=== PATIENT | female | born 1980 | race Caucasian/White ===

== ENCOUNTER 2016-10-17 09:24 | Day surgery (SDC) | payer OTHER ==
[~2016-10-17 09:24] MED LIST: Buffered Lidocaine 0.9% SYRIN* 5 ML/SYR SYRINGE INTRADERM ONE; Famotidine IV* 10 MG/ML 2 ML (20 mg) IV ONE; Morphine INJ* 2 MG/ML 1 ML SYRINGE IV PRN; PROCHLORPERAZINE INJ 5 MG/ML 2 ML VIAL IV PRN; fentaNYL* 50 MCG/ML 2 ML VIAL (100 MCG VIAL) IV PRN; oxyCODONE/Acetamin 5/325 MG* TAB PO PRN
[2016-10-17] MEDS ORDERED: Famotidine IV* 10 MG/ML 2 ML (20 mg) ONE (09:25)
[2016-10-17] MEDS ORDERED: Buffered Lidocaine 0.9% SYRIN* 5 ML/SYR SYRINGE ONE (09:25)
[2016-10-17] MEDS ORDERED: fentaNYL* 50 MCG/ML 2 ML VIAL (100 MCG VIAL) ONE (09:37)
[2016-10-17] MEDS ORDERED: Midazolam* 1 MG/ML 5 ML VIAL (5 MG) ONE (09:38)
[2016-10-17] MEDS ORDERED: KETAMINE HCL* 50 MG/ML 10 ML VIAL ONE (09:38)
[2016-10-17] MEDS ORDERED: Bupivacaine 0.5% W/EPI SDV* 10 ML VIAL INJ ONE (10:19)
[2016-10-17] MEDS ORDERED: Lidocaine 1% INJ* 10 MG/ML 30 ML SDV ONE (10:19)
[2016-10-17] MEDS ORDERED: Propofol* 10 MG/ML 20 ML BTL IV PUSH ONE (10:47)
[2016-10-17] MEDS ORDERED: Lidocaine 2% PF * 5 ML VIAL ONE (10:47)
[2016-10-17] MEDS ORDERED: Dexamethasone IV* 4 MG/ML 1 ML (4 MG) ONE (10:47)
[2016-10-17] MEDS ORDERED: Ondansetron INJ* 2 MG/ML VIAL ONE (10:47)
[2016-10-17] MEDS ORDERED: PROCHLORPERAZINE INJ 5 MG/ML 2 ML VIAL ONE (11:20)
[2016-10-17] MEDS ORDERED: Scopolamine 1.5 mg* PATCH ONE (11:42)
[2016-10-17 11:59] VITALS: BP 104/68
--- NOTE | 2016-10-18 10:29 | OP ---
CC: Racheal Barnett NP * DATE OF OPERATION: 10/17/16 - [facility] DATE OF : 78 SURGEON: Erin Matthews MD SATURATION DIVER: There was no therapeutic recreation assistant for this case. ANESTHESIOLOGIST: Sterling Orona MD ANESTHESIA: General PRE-OP DIAGNOSIS: Left axillary mass. POST-OP DIAGNOSIS: Left axillary mass. OPERATIVE PROCEDURE: Excision of left axillary mass. INDICATIONS: This patient is a 36-year-old woman who presented to the office with a mass in the left axilla. Given her strong family history of breast cancer, ultrasound evaluation was done and showed an indeterminant nodule prompting the plan for a surgical excision. DESCRIPTION OF PROCEDURE: She was brought to the operating room, placed on the OR table in supine position and given general anesthesia. The left axilla was prepped and draped in the usual sterile fashion, and then after infiltrating with local anesthetic, an elliptical incision encompassing the dome of the mass was made. Subcutaneous tissue was then divided with a combination of sharp and electrocautery dissection to completely excise a nodule that was easily palpable under the skin. This was handed off as a specimen. Hemostasis was assured with electrocautery and once this was adequate, closure was accomplished with 3-0 Polysorb in a subcutaneous layer, and the skin was closed with 4-0 Surgipro in a subcuticular fashion. Steri-Strips and a dry sterile dressing were applied. All sponge and instrument counts were correct. The patient tolerated the procedure well and was transferred to Recovery in a stable condition. [id number]/[facility] #: [id number] MTDD
== END 2016-10-17 12:30 | disposition home or self-care (01) ==
LOC: OR 09:24
PROVIDERS: ATTEND Surgery
DX: L02.412 Cutaneous abscess of left axilla (principal); F17.210 Nicotine dependence, cigarettes, uncomplicated; J45.909 Unspecified asthma, uncomplicated; Z80.3 Family history of malignant neoplasm of breast
CPT/HCPCS: 88305; A9270-GY; J0780; J1100; J2001; J2250; J2405; J2704; J3010

== ENCOUNTER 2016-10-25 22:58 | Observation (INO) | payer OTHER ==
[2016-10-26] MEDS ORDERED: Vancomycin(*) 1,000 MG in NS 0.9% 250 ML* 250 ML IVPB ONE (02:00)
[2016-10-26 02:49] LABS: Hematocrit 40 % (35-47); Hemoglobin 13.1 g/dl (12.0-16.0); Mean Corpuscular HGB Conc 33 g/dl (31-36); Mean Corpuscular Hemoglobin 30 pg (27-31); Mean Corpuscular Volume 93 fL (80-97); Mean Platelet Volume 9 um3 (7.4-10.4); Red Blood Count 4.29 10^6/ul (4.0-5.4); Red Cell Distribution Width 13 % (10.5-15); White Blood Count 9.6 10^3/ul (3.5-10.8)
[2016-10-26 02:59] LABS: Albumin 3.7 g/dL (3.2-5.2); BUN/Creatinine Ratio 23.8 (8-20); Calcium 8.7 mg/dL (8.6-10.3); EGFR African American 103.8 (>60); EGFR Non-African American 80.7 (>60); Globulin 2.8 g/dL (2-4); Total Bilirubin 0.2 mg/dL (0.2-1.0); Total Protein 6.5 g/dL (6.4-8.9)
[2016-10-26] MEDS: HYDROmorphone* 1 MG/ML 1 ML SYR IV SLOW PU PRN ×5 (03:19→17:59)
[2016-10-26] MEDS: Ondansetron INJ* 2 MG/ML VIAL IV PRN ×3 (03:19→17:59)
[2016-10-26] MEDS: Sulfamethox/Trimethoprim DS 800/160* TAB PO SCH ×2 (09:26→21:05)
[2016-10-26] MEDS: metroNIDAZOLE TAB* 250 MG PO SCH ×3 (09:26→21:05)
[2016-10-26] MEDS: Divalproex DR TAB(*) 500 MG PO SCH (09:26)
[2016-10-26] MEDS: Mometasone/Formoter 200/5 MDI INH SCH (09:27)
[2016-10-26] MEDS: Ketorolac INJ* 30 MG/ML 1 ML VIAL IV PUSH SCH ×3 (10:41→22:12)
[2016-10-26] MEDS: Albuterol 2.5 MG/3 ML NEB.SOL* (0.083%) INH SCH ×2 (15:56→17:58)
--- NOTE | 2016-10-26 16:26 | HP ---
CC: Sterling Pena MD; Racheal Barnett NP HISTORY AND PHYSICAL: DATE OF ADMISSION: This is an interval re-admission note. HISTORY OF PRESENT ILLNESS: The patient is a 36-year-old female who underwent excision of an axilla ry abscess by Dr. Matthews on 10/17/16. She was seen 5 days ago by her primary physician, who saw [facility] [place] and put her on Bactrim. She presented back to the emergency room in [place] last night and subsequently was transferred here to [facility] with increasing pain and drainage fr om the site. The pain has required intravenous Dilaudid to try to get it under control. PAST MEDICAL HISTORY: The remainder of her past medical history is unchanged from previous. PHYSICAL EXAMINATION On examination today, she has some mild erythema and swelling around the left axillary incision site . The wound has opened up. It is approximately 2 x 2.5 cm with a depth of about 3 cm. It is drain ing clear serous fluid. There is some purulent exudate there as well. There is some tenderness ext ending down into her arm, but I do not appreciate any erythema or induration down into the arm. The hand appears well perfused and without edema. LABORATORY STUDIES: Reveal normal white blood count with just a trace left shift. Electrolytes are normal. She had a swab of the area taken in the emergency room. The Gram stain shows gram- positive cocci a nd gram-positive bacilli. IMPRESSION: A 36-year-old female, 9 days out from excision of abscessed mass at the left axilla, no w with increased pain and drainage and inflammation in the area. She was admitted for pain control a nd continued antibiotics. Hopefully, once we get her pain under control, she will be able to go katy e relatively quickly. [id number]/[facility] #: [id number]
[2016-10-26] MEDS ORDERED: Sertraline* 50 MG TAB PO SCH (21:00)
[2016-10-26] MEDS ORDERED: Divalproex DR TAB(*) 500 MG PO SCH (21:00)
[2016-10-26] MEDS: oxyCODONE/Acetamin 5/325 MG* TAB PO PRN (21:04)
[2016-10-27] MEDS: Mometasone/Formoter 200/5 MDI INH SCH ×2 (00:28→08:15)
[2016-10-27] MEDS: Albuterol 2.5 MG/3 ML NEB.SOL* (0.083%) INH SCH ×2 (01:44→06:14)
[2016-10-27] MEDS: Ketorolac INJ* 30 MG/ML 1 ML VIAL IV PUSH SCH ×2 (04:22→09:22)
[2016-10-27] MEDS: oxyCODONE/Acetamin 5/325 MG* TAB PO PRN (06:46)
[2016-10-27] MEDS: metroNIDAZOLE TAB* 250 MG PO SCH (09:22)
[2016-10-27] MEDS: Sulfamethox/Trimethoprim DS 800/160* TAB PO SCH (09:22)
[2016-10-27] MEDS: Divalproex DR TAB(*) 500 MG PO SCH (09:22)
--- NOTE | 2016-10-27 11:13 | PN ---
Progress Note - Progress Note Date of Service: 10/27/16 SOAP: Subjective: Doing much better. Pain has improved. Minimal drainage, changed dressing once. Denies fever or chills. Objective: Awake and alert, appears comfortable and in NAD Left axilla with a small approx 2x2 wound packed with dry dressing. No induration or erythema noted. No bleeding or discharge. A strip of 1/4 plain packing gauze used to pack wound, then covered with 4x4 dressing and ABD. Assessment: A 36 y/o female, s/p I&D of L axillary cyst Plan: D/C to home today PO Augmentin and Percocet prn. F/U in office in [address] Matthews for packing change and wound recheck. Pt already has an appointment scheduled.
[2016-10-27 13:02] VITALS: BP 125/55
--- NOTE | 2016-10-28 11:19 | DS ---
AMENDED REPORT NOW INCLUDES COSIGNER DESIGNATION - ESIGNED BEFORE ADJUSTMENTS CC: Dr. Matthews; Racheal Barnett NP * DISCHARGE SUMMARY: DATE OF ADMISSION: 10/26/16 DATE OF DISCHARGE: 10/27/16 PATIENT OF: Dr. Sterling Pena. * (DICTATED BY BROOKS CALLAHAN) REASON FOR ADMISSION: Left axillary pain and drainage, status post excision of a sebaceous cyst from the left axilla 9 days ago. ADMITTING PHYSICIAN: Sterling Pena MD CONSULTATIONS: None. PROCEDURES: None. BRIEF MEDICAL HISTORY: Ms. Elizondo is a pleasant 36-year-old female who underwent an excision of an axillary cyst by Dr. Matthews back on 10/17/16. She was seen 5 days ago by her primary physician, who saw some possible infection in the area. The patient was started on Bactrim and she presented back to the emergency room yesterday in [place] with increasing pain and drainage from the site. She was eventually transferred to [facility] Emergency Room where she was evaluated by Dr. Pena and a decision was made for her to be admitted for pain control and IV antibiotics. HOSPITAL COURSE: The patient was directly admitted by surgical services. On examination, she happened to have some mild erythema and swelling for which the wound was opened and it measured approximately 2 x 2.5 cm with a depth of about 3 cm. It was noted that it had a clear serous drainage as well as some purulent exudate as well. There was no evidence of any erythema or induration; however, the patient was kept overnight for observation. This morning she did relatively much better with better pain control. She was stopped from her Bactrim and initial cultures of her axillary wound revealed gram-positive cocci in cluster for which we will change antibiotic coverage to Augmentin pending on the culture results. She was doing much better this morning and she was ready to be discharged home. The area was examined again and there was no evidence of any erythema, induration, bleeding or discharge. The wound was packed with a quarter-inch plain packing gauze and covered with 4 x 4 sterile dressing and ABD pads. The patient already has a followup appointment with Dr. Matthews in 2 days in the office where she will be seen for wound recheck and possible packing change. DISCHARGE MEDICATIONS: Include: 1. Albuterol nebulizer 2.5 mg per 3 mL q.6 hours as needed for shortness of breath. 2. Tylenol 650 p.o. q.6 hours as needed for pain or fever. 3. Augmentin 875 mg p.o. b.i.d. for 7 days. 4. Depakote 500 mg two tablets daily. 5. Imitrex 100 mg p.o. daily. 6. Zoloft 50 mg p.o. q.h.s. 7. Percocet 5/325 one to two tablets q.6 hours as needed for pain. PROBLEM LIST: Left axillary sebaceous cyst, status post excision of the cyst 10 days ago with complicated abscess and seroma formation, status post suture removal and packing of left axillary wound. [facility] [place] [id number]/[facility] #: [id number] MTDD
== END 2016-10-27 13:25 | disposition home or self-care (01) ==
LOC: ED 22:58 → SSU 10-26 01:34
PROVIDERS: ADMIT Surgery; ATTEND Surgery
DX: L02.412 Cutaneous abscess of left axilla (principal); G89.18 Other acute postprocedural pain; Z79.899 Other long term (current) drug therapy
CPT/HCPCS: 36415; 80053; 83605; 85025; 85610; 85730; 87040; 87070; 87076; 87205; 94640; 96374; 96375; 96376; A9270-GY; G0378; J1170; J1885; J2405; J3370

== ENCOUNTER 2019-02-19 14:34 | Emergency (ER) | payer OTHER ==
[2019-02-19 14:57] VITALS: BP 123/78
--- NOTE | 2019-02-19 15:27 | UC ---
Throat Pain/Nasal Bret HPI - HPI Summary HPI Summary: 38-year-old woman comes in with a chief complaint of 4 days of upper respiratory tract infection symptoms.'s been having rhinorrhea down into her chest is cough chest congestion also. Sputum is green. Also has been vomiting intermittently. Does have some soreness left upper quadrant of her abdomen is worse with coughing or vomiting. No other abdominal pain. No recent fevers. - History of Current Complaint Chief Complaint: UCGeneralIllness Stated Complaint: SORE THROAT HEADACHE SINUS NAUSEA Time Seen by Provider: 02/19/19 15:06 Hx Last Menstrual Period: 09/12/13 Pain Intensity: 5 - Allergies/Home Medications Allergies/Adverse Reactions: Allergies Allergy/AdvReac Type Severity Reaction Status Date / Time levofloxacin [From Levaquin] Allergy Swelling Verified 02/19/19 14:58 piroxicam [From Feldene] Allergy Hives Verified 02/19/19 14:58 bees Allergy Swelling Uncoded 02/19/19 14:58 Of Face,Lips,& Throat berries Allergy Anaphylatic Uncoded 02/19/19 14:58 Shock Home Medications: Home Medications Phenylephrine HCl/Acetaminophn [Sinus-Headache Caplet] 1 each PO DAILY PRN 02/19 [History Confirmed 02/19/19] PMH/Surg Hx/FS Hx/Imm Hx Previously Healthy: Yes - Surgical History Surgical History: Yes Surgery Procedure, Year, and Place: appy 1995, cholecystectomy 2012, coloposcopy and tubal ligation 2004, b/l axilla cysts [id number] - Family History Known Family History: Positive: Other - Cancer - Social History Alcohol Use: Rare Substance Use Type: Marijuana Substance Use Comment - Amount & Last Used: once a day Smoking Status (MU): Light Every Day Tobacco Smoker Amount Used/How Often: 2-5 DAY - Immunization History Most Recent Influenza Vaccination: 2016 Most Recent Pneumonia Vaccination: 2016 Review of Systems All Other Systems Reviewed And Are Negative: Yes Constitutional: Positive: Other - SEE HPI Skin: Positive: Negative Eyes: Positive: Negative ENT: Positive: Sore Throat, Nasal Discharge, Sinus Congestion Respiratory: Positive: Cough, Other - SEE HPI Cardiovascular: Positive: Negative Gastrointestinal: Positive: Vomiting, Nausea, Other - SEE HPI Motor: Positive: Negative Neurovascular: Positive: Negative Musculoskeletal: Positive: Negative Neurological: Positive: Negative Psychological: Positive: Negative Is Patient Immunocompromised?: No Physical Exam Triage Information Reviewed: Yes Appearance: No Pain Distress, Well-Nourished, Ill-Appearing - MILD Vital Signs: Initial Vital Signs Temp 98.3 F 02/19/19 14:51 Pulse 70 02/19/19 14:51 Resp 18 02/19/19 14:51 BP 123/78 02/19/19 14:51 Pulse Ox 100 02/19/19 14:51 Vital Signs Reviewed: Yes Eye Exam: Normal Eyes: Positive: Conjunctiva Clear ENT: Positive: Pharyngeal erythema, Nasal congestion, Nasal drainage, TMs normal Neck: Positive: Supple Respiratory: Positive: Lungs clear, Normal breath sounds, No respiratory distress Cardiovascular: Positive: RRR Musculoskeletal: Positive: Strength Intact, ROM Intact Neurological: Positive: Alert, Muscle Tone Normal Psychological: Positive: Age Appropriate Behavior Skin Exam: Normal Throat Pain/Nasal Course/Dx - Course Course Of Treatment: DISCUSSED VIRAL VERSES BACTERIAL INFECTIONS AND THE ROLE OF ANTIBIOTICS. THE PATIENT PREFERS TO BE ON ANTIBIOTICS AT THIS TIME. - Differential Dx/Diagnosis Provider Diagnosis: Bronchitis, Vomiting Discharge ED - Sign-Out/Discharge Documenting (check all that apply): Patient Departure All imaging exams completed and their final reports reviewed: No Studies - Discharge Plan Condition: Stable Disposition: HOME Prescriptions: Azithromyxin ADALBERTO (NF) [Z-Adalberto (Zithromax) 250 mg tabs #6] 2 tab PO .TODAY, THEN 1 DAILY #6 tab Ondansetron ODT TAB* [Zofran 4 MG Odt TAB*] 4 mg PO Q6H PRN #10 tab.odt PRN Reason: Nausea Patient Education Materials: Acute Bronchitis (ED), Acute Nausea and Vomiting ( ED) Referrals: Racheal Barnett NP [Primary Care Provider] - Additional Instructions: FOLLOW UP WITH YOUR DOCTOR IF NOT COMPLETELY IMPROVED. GET REEVALUATED SOONER IF NOT IMPROVING OR WORSE OR ANY QUESTIONS OR CONCERNS. - Billing Disposition and Condition Condition: STABLE Disposition: Home
== END 2019-02-19 15:32 | disposition home or self-care (01) ==
LOC: UCCORT 14:34
DX: J40 Bronchitis, not specified as acute or chronic (principal); R11.2 Nausea with vomiting, unspecified; J02.9 Acute pharyngitis, unspecified; F17.200 Nicotine dependence, unspecified, uncomplicated; Z88.1 Allergy status to other antibiotic agents; Z88.6 Allergy status to analgesic agent; Z91.030 Bee allergy status; Z91.018 Allergy to other foods
CPT/HCPCS: 87651; 99212; G0463

== ENCOUNTER 2019-05-19 19:25 | Emergency (ER) | payer OTHER ==
--- OUTSIDE RECORDS SUMMARY | 2019-05-19 19:49 | XMS REPORT | Continuity of Care Document ---
:1980 External Reference #:[id number] Demographics Phone Unavailable Preferred Language Unknown Marital Status Unknown Samaritan Affiliation Unknown Race Unknown Ethnic Group Unknown Author Name Nik Sheridan PA Address [address] [place] [address] Problems Description No Information Available Social History Type Date Description Comments Sex Unknown Allergies, Adverse Reactions, Alerts Active Allergies Reaction Severity Comments Date Bee Stings 04/18/2019 Medications Description No Active Medications Immunizations Description No Information Available Vital Signs Date Vital Result Comment 04/18/2019 1:36pm Weight 249.00 lb Heart Rate 87 /min BP Systolic 139 mmHg BP Diastolic 87 mmHg Height 65 inches 5'5" BMI (Body Mass Index) 41.4 kg/m2 Left ear audiology results 8FT Right ear audiology results 8FT Passed Right Visual Acuity Distance 20/25 Left Visual Acuity Distance 20/30 Both 20/30 Results Description No Information Available Procedures Description No Information Available Medical Devices Description No Information Available Encounters Description No Information Available Assessments Date Code Description Provider 04/18/2019 Z02.1 Encounter for pre-employment examination Nik Sheridan PA 04/18/2019 E66.01 Morbid (severe) obesity due to excess calories Nik Sheridan PA 04/18/2019 Z68.41 Body mass index (BMI) 40.0-44.9, adult Nik Sheridan PA Plan of Treatment 04/18/2019 - Nik Sheridan PAZ02.1 Encounter for pre-employment examinationComments: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
--- OUTSIDE RECORDS SUMMARY | 2019-05-19 19:49 | XMS REPORT | Continuity of Care Document ---
:1980 External Reference #:[id number] Author Name Racheal Barnett N.P. Address [address] [place] [address] Care Team Providers Name Role Phone Suraj Saavedra - Neurology Care Team Information Windshield Technician [phone] Problems Active Problems Provider Date Asthma Racheal Barnett N.PAmber Onset: 09/19/2014 Dysplasia of cervix Racheal Barnett N.PAmber Onset: 09/19/2014 Cholecystectomy Racheal Barnett, N.PAmber Onset: 09/19/2014 Appendectomy Racheal Barnett, N.PAmber Onset: 09/19/2014 H/O: tubal ligation Racheal Barnett, N.PAmber Onset: 03/17/2017 Diverticulitis Racheal Barnett, N.PAmber Onset: 11/09/2017 Social History Type Date Description Comments Sex Unknown Tobacco Use Start: Unknown current cigarette smoker Tobacco Use Start: Unknown Patient is a current smoker, smokes every day Allergies, Adverse Reactions, Alerts Active Allergies Reaction Severity Comments Date Feldene 09/19/2014 Levaquin 09/19/2014 Medications Active Medications SIG Qnty Indications Ordering Provider Date Zithromax Z-Anup as directed 1tabs Racheal Barnett, 05/25/2018 250mg N.P. Tablets Work Note no work Racheal Barnett, 05/25/2018 05/09/2019-05/13/19 N.P. 20 Proair HFA 2 puffs four 1units Racheal Barnett, 09/19/2014 108(90Base) times a day as N.P. mcg/Act Aerosol needed Symbicort inhale 2 puffs by 1unRacheal Leal, 09/19/2014 mouth 2 times a N.P. 160-4.5mcg/Act day Aerosol Medications Administered in Office Medication SIG Qnty Indications Ordering Provider Date Torodol Injection 15 MG Dose Racheal Barnett, N.P. 09/12/2015 Injection Immunizations CPT Code Status Date Vaccine Lot # [id number] Refused 05/25/2018 Influenza Vac, Quadrivalent, Split, 0.5mL Dosage, Im Use Vital Signs Date Vital Result Comment 05/11/2019 10:53am Body Temperature 97.7 F Weight 247.00 lb Heart Rate 82 /min BP Systolic 132 mmHg BP Diastolic 82 mmHg O2 % BldC Oximetry 97 % 05/25/2018 11:21am Body Temperature 98.6 F Weight 247.00 lb Heart Rate 83 /min BP Systolic 126 mmHg BP Diastolic 80 mmHg O2 % BldC Oximetry 97 % Results Test Acquired Date Facility Test Result H/L Range Note CBS 02/25/2019 [facility] White Blood 11.9 K/uL High 3.1-10.7 1 W/Automated (315)- - Count Diff Red Blood Count 5.21 M/uL Normal 3.90-5.40 Hemoglobin 15.5 gm/dL Normal 11.6-15.8 Hematocrit 45.9 % Normal 36.0-46.1 Mean Cell Volume 88.1 fl Normal 80.9-99.0 Mean Corpuscular HGB 29.8 pg Normal 25.9-32.7 Mean Corpuscular HGB Conc 33.8 g/dL Normal 30.8-34.3 Platelet Count 277 K/uL Normal 155-360 Red Cell Distri Width SD 42.4 fl Normal 36-47 Red Cell Distri Width %CV 13.1 % Normal 11.7-14.4 Mean Platelet Volume 10.0 fl Normal 8.9-12.4 Neut% 73.2 % High 40.4-72.8 Lymph % 20.0 % Normal 20.0-42.0 [place] % 4.6 % Normal 4.3-13.2 Eo% 1.3 % Normal 0.0-6.6 Bas% 0.3 % Normal 0.0-1.1 Immature Grans 0.6 % Normal 0.0-5.0 NRBC % 0.0 /100WBC < 10/ 100 WBC Neut# 8.68 K/uL High 1.8-7.0 Lymph # 2.37 K/uL Normal 1.0-4.0 [place] # 0.54 K/uL Normal 0.3-0.9 Eos # 0.15 K/uL Normal 0.0-0.5 Baso # 0.04 K/uL Normal 0.0-0.1 Immature Grans Absolute 0.07 K/uL NRBC # 0.00 K/uL Urinalysis With 02/25/2019 [facility] Urine Color Yellow Yellow Microscopic (315)- - Urine Clarity Clear Clear Urine Glucose - Dipstick NEGATIVE mg/dL Negative Urine Bilirubin - Dipstick NEGATIVE Negative Urine Ketone TRACE mg/dL Negative Urine Specific [place] 1.023 Normal 1.010-1.030 Urine Blood TRACE Negative Urine PH 5.5 Low 6.5-7.5 Urine Protein - Dipstick NEGATIVE mg/dL Negative Urine Urobilinogen - Dipstick < 2.0 mg/dL < 2.0 Urine Nitrite - Dipstick NEGATIVE Negative Urine Leuk Esterase NEGATIVE Negative Urine RBC 3-5 rbc/hpf 0-2 Urine WBC 0-2 wbc/hpf 0-5 Urine Epithelial Cells MANY /lpf None Seen Urine Bacteria FEW None Seen Urine Mucus SMALL None Seen Source: URINE, CLEAN CAT <SEE NOTE> 2 Laboratory test 02/19/2019 [facility] Rapid Strep Negative Negative 3 finding Molecular 1 DIARRHEA PAIN IN BACK BRONCHITIS LAST WEEK 2 URINE, CLEAN CATCH 3 [employer]: [id number] Suboptimal collection technique may reduce sensitivity of test. Refer to the [facility] Test Catalog for collection information: [email or web address] As with all diagnostic procedures, the laboratory results obtained should be used in conjunction with other clinical information available to the physician, including confirmation by another method, as applicable. Procedures Date Code Description Status 05/11/2019 13378 Measure Blood Oxygen Level Single Determination Completed 10/16/2016 [id number] Mammogram Completed 10/14/2016 [id number] Mammogram Completed Medical Devices Description No Information Available Encounters Description No Information Available Assessments Date Code Description Provider 05/11/2019 J20.9 Acute bronchitis, unspecified Racheal Barnett, N.P. Plan of Treatment 05/11/2019 - Racheal Barnett N.P.J20.9 Acute bronchitis, unspecifiedComments: cont current meds as rx'd, increase fluids and reststart zithromax as rx' dreport non-resolution 3-5days Functional Status Description No Information Available Mental Status Description No Information Available Referrals Description No Information Available
--- OUTSIDE RECORDS SUMMARY | 2019-05-19 19:49 | XMS REPORT | Continuity of Care Document ---
:1980 External Reference #:[id number] Author Name Zaid Betancourt M.D. (transmitted by agent of provider Gabriela Lundberg) Address [address] [place] [id number] Care Team Providers Name Role Phone Racheal Barnett NP - Family Care Team Information Registered Pharmacy Technician [phone] Problems Active Problems Provider Date Diverticulitis of colon Zaid Betancourt M.D. Onset: 11/23/2017 Social History Type Date Description Comments Sex Unknown ETOH Use Rarely consumes alcohol Tobacco Use Start: Unknown Light tobacco smoker (10 or fewer cigarettes/day) Recreational Drug Use Marijuana Allergies, Adverse Reactions, Alerts Active Allergies Reaction Severity Comments Date Feldene 12/25/2015 Piroxicam Hives 11/24/2017 Levaquin 12/25/2015 Levofloxacin Hives 11/24/2017 Medications Active Medications SIG Qnty Indications Ordering Provider Date Metronidazole 1 by mouth 30tabs K57.92 [place], 11/23/2017 500mg three times a Zaid Ramachandran, Tablets day M.D. Amoxicillin/Clavulanat 1 by mouth 20tabs K57.92 [place], 11/23/2017 e Potassium twice a day Zaid Ramachandran, 875-125mg M.D. Tablets Divalproex Sodium ER Halima Saldana, DEVOPS ARCHITECT-C 500mg Tablets ER 24HR Sertraline HCL Racheal Barnett, 50mg TRAVEL AGENCY MANAGER Tablets Metronidazole Take One 30tabs [place], 500mg Tablet By MD Zaid Tablets Mouth Three Times A Day Immunizations Description No Information Available Vital Signs Date Vital Result Comment 11/23/2017 2:47pm BP Systolic Sitting Right Arm 141 mmHg BP Diastolic Sitting Right Arm 65 mmHg Heart Rate 153 /min Respiratory Rate 18 /min Height 66 inches 5'6" Weight 251.38 lb BMI (Body Mass Index) 40.6 kg/m2 BSA (Body Surface Area) 2.20 m2 [place] body weight in kilograms 59 kg O2 % BldC Oximetry 97 % 02/14/2016 2:46pm BP Systolic Sitting Left Arm 122 mmHg BP Diastolic Sitting Left Arm 78 mmHg Heart Rate 83 /min Respiratory Rate 16 /min Height 66 inches 5'6" Weight 228.00 lb BMI (Body Mass Index) 36.8 kg/m2 BSA (Body Surface Area) 2.11 m2 Results Description No Information Available Procedures Date Code Description Status 01/23/2016 [id number] Colonoscopy Completed 03/30/2012 [id number] Colonoscopy Completed 03/30/2009 [id number] Colonoscopy Completed Medical Devices Description No Information Available Encounters Description No Information Available Assessments Description No Information Available Plan of Treatment 11/23/2017 - Zaid Betancourt M.D.K57.92 Diverticulitis of intestine, part unspecified, without perforation or abscess without bleedingNew Medication: Metronidazole 500 mg - 1 by mouth three times a dayAmoxicillin/Clavulanate Potassium 875-125 mg - 1 by mouth twice a dayComments:Resume abx. 40 electronically fall. Study with white cell,, hemoglobin, creatinine in preparation for CT scanning. Assess the systemic response to what appears to clinically be some ongoing smoldering infection.Certainly not out of question that additional intervention may be necessary to possibly include a more urgent review of the decision to continue with medical management proceed with surgery. This may mean creation of the stoma. She is aware of this.Follow-up next week; asked to call or return if there are difficulties before then. Seen with her . Questions addressed. Functional Status Description No Information Available Mental Status Description No Information Available Referrals Description No Information Available
[2019-05-19 19:54] VITALS: BP 128/75
--- NOTE | 2019-05-19 20:32 | UC ---
Ear Complaint HPI - HPI Summary HPI Summary: just finished zpack for cough On thursday, this morning pain in right neck/ear area, increase pain with pressure. Per patient swollen. - History of Current Complaint Chief Complaint: UCGeneralIllness Stated Complaint: THROAT COMPLAINT Time Seen by Provider: 05/19/19 20:30 Hx Obtained From: Patient Hx Last Menstrual Period: 05/09/19 ?: No Onset/Duration: Sudden Onset, Lasting Days Severity Initially: Moderate Severity Currently: Severe Pain Intensity: 8 Associated Signs/Symptoms: Positive: URI Symptoms - Allergies/Home Medications Allergies/Adverse Reactions: Allergies Allergy/AdvReac Type Severity Reaction Status Date / Time levofloxacin [From Levaquin] Allergy Swelling Verified 05/19/19 19:54 piroxicam [From Feldene] Allergy Hives Verified 05/19/19 19:54 bees Allergy Swelling Uncoded 05/19/19 19:54 Of Face,Lips,& Throat berries Allergy Anaphylatic Uncoded 05/19/19 19:54 Shock Home Medications: Home Medications Albuterol 2.5MG/3ML (0.083%)* 1 - 2 puff INH Q6HR 10/11/13 [History Confirmed ] predniSONE [Prednisone 20 MG TAB] 40 mg PO DAILY #10 tablet 05/19/19 [Rx] PMH/Surg Hx/FS Hx/Imm Hx Previously Healthy: Yes - Surgical History Surgical History: Yes Surgery Procedure, Year, and Place: appy 1995, cholecystectomy 2012, coloposcopy and tubal ligation 2004, b/l axilla cysts [id number]. axilia cyst removed 2016 - Family History Known Family History: Positive: Other - Cancer - Social History Occupation: Employed Full-time Alcohol Use: Rare Substance Use Type: Marijuana Substance Use Comment - Amount & Last Used: once a day Smoking Status (MU): Light Every Day Tobacco Smoker Amount Used/How Often: 2-5 DAY - Immunization History Most Recent Influenza Vaccination: 2016 Most Recent Pneumonia Vaccination: 2016 Review of Systems All Other Systems Reviewed And Are Negative: Yes ENT: Positive: Ear Ache Is Patient Immunocompromised?: No Physical Exam Triage Information Reviewed: Yes Appearance: Well-Nourished, Ill-Appearing, Pain Distress Vital Signs: Initial Vital Signs Temp 98.1 F 05/19/19 19:47 Pulse 83 02/20/20 19:47 Resp 20 05/19/19 19:47 BP 128/75 05/19/19 19:47 Pulse Ox 98 05/19/19 19:47 Vital Signs Reviewed: Yes Eye Exam: Normal ENT: Positive: Pharynx normal, TM bulging, TM red - right ear, with serous fluid noted behind TM Neck: Positive: Enlarged Nodes @ - right cervical Respiratory Exam: Normal Cardiovascular Exam: Normal Abdominal Exam: Normal Musculoskeletal Exam: Normal Neurological Exam: Normal Psychological Exam: Normal Skin Exam: Normal Ear Complaint Course/Dx - Course Course Of Treatment: hx obtained, exam performed ,meds reviewed, - Differential Dx/Diagnosis Provider Diagnosis: Acute serous otitis media of right ear Discharge ED - Sign-Out/Discharge Documenting (check all that apply): Patient Departure All imaging exams completed and their final reports reviewed: No Studies - Discharge Plan Condition: Stable Disposition: HOME Prescriptions: predniSONE [Prednisone 20 MG TAB] 40 mg PO DAILY #10 tablet Patient Education Materials: Serous Otitis Media (ED) Referrals: Racheal Barnett BR[facility] PAINTER [Primary Care Provider] - Additional Instructions: 1. take the medication as prescribed. 2. once prednisone is done you can continue with decongestant for the next week or two. 3. Warm compresses to the ear 2-3 times a day - Billing Disposition and Condition Condition: STABLE Disposition: Home - Attestation Statements Provider Attestation: I was available for consult. This patient was seen by the TK. The patient was not presented to, seen by, or examined by me. -Liban
== END 2019-05-19 20:49 | disposition home or self-care (01) ==
LOC: UCCORT 19:25
DX: H65.01 Acute serous otitis media, right ear (principal); R05 Cough; F17.290 Nicotine dependence, other tobacco product, uncomplicated; Z91.018 Allergy to other foods; Z91.030 Bee allergy status; Z88.1 Allergy status to other antibiotic agents; Z88.6 Allergy status to analgesic agent
CPT/HCPCS: 99212; G0463